=== PATIENT | male | born 1955 | race Caucasian/White ===

== ENCOUNTER 2016-09-27 09:23 | Day surgery (SDC) | payer BC ==
[~2016-09-27 09:23] MED LIST: Lactated Ringers 1,000 ML IV SCH
--- NOTE | 2016-09-27 10:09 | PCM.PREANE ---
Preanesthetic Assessment - Anesthesia/Transfusion/Family Hx Anesthesia History: Prior Anesthesia Without Reaction Family History of Anesthesia Reaction: No Transfusion History: No Prior Transfusion(s) Intubation History: Unknown - Review of Systems General: No Symptoms Pulmonary: No Symptoms Cardiovascular: No Symptoms Gastrointestinal: No symptoms Neurological: No Symptoms Other: Reports: None - Physical Assessment O2 Sat by Pulse Oximetry: 95 Respiratory Rate: 16 Vital Signs: Last Vital Signs Temp 36.7 C 09/27/16 09:54 Pulse 75 09/27/16 09:54 Resp 16 09/27/16 09:54 BP 171/93 H 09/27/16 09:54 Pulse Ox 95 09/27/16 09:54 Height: 1.78 m Weight: 115.666 kg ASA Class: 2 Mental Status: Alert & Oriented x3 Airway Class: Mallampati = 2 Dentition: Reports: Normal Dentition Thyro-Mental Finger Breadths: 3 Mouth Opening Finger Breadths: 3 ROM/Head Extension: Full Lungs: Clear to auscultation, Normal respiratory effort Cardiovascular: Regular Rate, Regular Rhythm - Allergies Allergies/Adverse Reactions: Allergies Allergy/AdvReac Type Severity Reaction Status Date / Time No Known Allergies Allergy Verified 05/08/16 14:47 - Blood Blood Available: No - Anesthesia Plan Pre-Op Medication Ordered: None - Acknowledgements Anesthesia Type Planned: MAC Pt an Appropriate Candidate for the Planned Anesthesia: Yes Alternatives and Risks of Anesthesia Discussed w Pt/Guardian: Yes Pt/Guardian Understands and Agrees with Anesthesia Plan: Yes PreAnesthesia Questionnaire Cardiovascular History: Reports: Hypertension Other Cardiovascular History: HTN in the past Gastrointestinal History: Reports: Other (See Below) Other Gastrointestinal History: dx with ruptured appendix at New Year, treated with guided drainage. Musculoskeletal History: Reports: Arthritis Endocrine/Metabolic History: Reports: Obesity/BMI 30+ Immunologic History: Reports: Other (See Below) (h/o shingles and post herpetic neuralgia) Oncologic (Cancer) History: Reports: Other (See Below) Other Oncologic History: Testicular Ca Left - Past Surgical History Head Surgeries/Procedures: Reports: None Cardiovascular Surgical History: Reports: None GI Surgical History: Reports: Colonoscopy Male Surgical History: Reports: Vasectomy, Other (See Below) Other Male Surgeries/Procedures: hx orchiectomy for testicular cancer Musculoskeletal Surgical History: Reports: Knee Replacement Other Musculoskeletal Surgeries/Procedures:: lt TKA - SUBSTANCE USE Smoking Status *Q: Current Some Day Smoker Tobacco Use Within Last Twelve Months: Cigarettes Second Hand Smoke Exposure: No Recreational Drug Use History: No - HOME MEDS Home Medications: Home Meds Arginine [l-Arginine] 500 mg PO DAILY 05/08/16 [History] Lutein/Minerals/Vit A,C & E [Ocuvite] 0 each PO DAILY 05/08/16 [History] Vitamin B Complex 1 each PO DAILY 05/08/16 [History] Calcium Carbonate [Calcium] 1 tab PO DAILY 09/06/16 [History] - CURRENT (IN HOUSE) MEDS Current Meds: Current Medications Lactated Ringer's (Ringers, Lactated) 1,000 mls @ 125 mls/hr IV ASDIRECTED [facility] Last Admin: 09/27/16 09:52 Dose: 125 mls/hr Discontinued Medications Lactated Ringer's (Ringers, Lactated) 1,000 mls @ 125 mls/hr IV ASDIRECTED [facility]
[2016-09-27] MEDS ORDERED: Propofol 200 MG/20 ML SDV ONE (10:53)
[2016-09-27] MEDS ORDERED: fentaNYL 100 MCG/2 ML SDV ONE (10:53)
[2016-09-27] MEDS ORDERED: Lidocaine 2% 5 ML SDV ONE (10:53)
[2016-09-27] MEDS ORDERED: Midazolam 1 MG/ML 2 ML SDV ONE (11:07)
[2016-09-27] MEDS ORDERED: Glycopyrrolate 0.2 MG/ML SDV ONE (11:23)
--- NOTE | 2016-09-27 11:37 | PCM.OPNOTE ---
- General Post-Op/Procedure Note Date of Surgery/Procedure: 09/27/16 (c) Operative Procedure(s): colonoscopy Findings: see dict [id number] Pre Op Diagnosis: perf appendicitis hx Post-Op Diagnosis: hemorrhoid Anesthesia Technique: Moderate sedation Primary Surgeon: Gianluca Gross Complications: None Condition: Good
--- NOTE | 2016-09-27 11:55 | PCM.POSTAN ---
POST ANESTHESIA ASSESSMENT - MENTAL STATUS Mental Status: alert, oriented - RESPIRATORY Respiratory Status: respiratory rate WNL, airway patent, O2 saturation stable - CARDIOVASCULAR CV Status: pulse rate WNL, blood pressure stable - GASTROINTESTINAL GI Status: no symptoms - POST OP HYDRATION Hydration Status: adequate & stable - OBSERVATIONS Free Text/Narrative:: no anesthesia problems
--- NOTE | 2016-09-27 12:05 | OR ---
SURGEON: Gianluca Gross MD DATE OF PROCEDURE: 09/27/2016 PREOPERATIVE DIAGNOSIS: Perforated appendicitis history. POSTOPERATIVE DIAGNOSIS: Hemorrhoids. COMPLICATIONS: None. PROCEDURE PERFORMED: Colonoscopy. FINDINGS: 1. The patient is easily sedated with COACH DRIVER and Diprivan. The patient is soundly snoring. 2. Bowel prep was average with moderate amount of liquid stool and requiring irrigation. 3. The patient's colon is rather straight forward. Cecum indicated by one-to- one indentation ileocecal fold, and appendiceal orifice. Light immittance is not observed. The mucosa examined upon scope pulling out and the patient does not have diverticulitis, diverticulosis, mass, polyp, growth, inflammation, stricture, ulceration, bleeding, AV malformation, none of those. The patient does have moderate internal hemorrhoids and mild external hemorrhoids. The patient would benefit from a repeat colonoscopy 10 years from today or if clinically indicated otherwise. DESCRIPTION OF PROCEDURE: The patient was taken to the endoscopy room. A time out was called, patient identified, and procedure identified. Diprivan was then administrated. Patient went from awake to sleep, hearing doctor talking or door closing is normal. Perineum inspection and digital examination were then performed. A well- lubricated colonoscope was gently inserted through the rectum, advanced past the rectosigmoid junction, the descending colon, splenic flexure, transverse colon, hepatic flexure, ascending colon, arrived to the cecum. Cecum was identified as dictated in the finding. Then the scope was carefully withdrawn while attention was paid to the mucosal surface for any abnormality. Air will be sucked out during the scope withdrawal. At the rectum, retroflexed to examine any rectal diseases, fistula or hemorrhoids. Patient tolerated procedure well. There were no intraoperative complications, and Dr. Gross was present throughout the whole procedure. FARNK / JOSE /[id number]
[2016-09-27 14:27] VITALS: BP 122/77
== END 2016-09-27 12:05 | disposition home or self-care (01) ==
LOC: MW.SDS 09:23
PROVIDERS: ATTEND Surgery
PROC: 0DJD8ZZ Inspection of Lower Intestinal Tract, Via Natural or Artificial Opening Endoscopic (ICD-10-PCS; principal; 2016-09-27)
DX: K64.4 Residual hemorrhoidal skin tags (principal); K64.8 Other hemorrhoids; N52.9 Male erectile dysfunction, unspecified; I10 Essential (primary) hypertension; F17.210 Nicotine dependence, cigarettes, uncomplicated; E66.9 Obesity, unspecified; Z86.19 Personal history of other infectious and parasitic diseases; Z87.01 Personal history of pneumonia (recurrent); Z85.47 Personal history of malignant neoplasm of testis; Z79.899 Other long term (current) drug therapy; Z96.652 Presence of left artificial knee joint; Z98.52 Vasectomy status; Z98.890 Other specified postprocedural states; Z68.37 Body mass index [BMI] 37.0-37.9, adult
CPT/HCPCS: 45378; J2250; J3010; J7120; J2704

== ENCOUNTER 2017-02-12 06:46 | Day surgery (SDC) | payer BC ==
[~2017-02-12 06:46] MED LIST changes: +cefOXitin 2 GM in Premix Bag 1 BAG IV ONE
--- NOTE | 2017-02-12 07:21 | PCM.PREANE ---
Preanesthetic Assessment - Anesthesia/Transfusion/Family Hx Anesthesia History: Prior Anesthesia Without Reaction Family History of Anesthesia Reaction: No Transfusion History: No Prior Transfusion(s) Intubation History: Unknown - Review of Systems General: No Symptoms Pulmonary: No Symptoms Cardiovascular: No Symptoms Gastrointestinal: No Symptoms Neurological: No Symptoms Other: Reports: None - Physical Assessment NPO Status Date: 02/11/17 O2 Sat by Pulse Oximetry: 96 Respiratory Rate: 16 Vital Signs: Last Vital Signs Temp 36.2 C 02/12/17 07:01 Pulse 77 02/12/17 07:01 Resp 16 02/12/17 07:01 BP 163/91 H 02/12/17 07:01 Pulse Ox 96 02/12/17 07:01 Height: 1.78 m Weight: 117.027 kg ASA Class: 2 Mental Status: Alert & Oriented x3 Dentition: Reports: Normal Dentition ROM/Head Extension: Full Lungs: Clear to Auscultation, Normal Respiratory Effort Cardiovascular: Regular Rate, Regular Rhythm - Allergies Allergies/Adverse Reactions: Allergies Allergy/AdvReac Type Severity Reaction Status Date / Time No Known Allergies Allergy Verified 02/12/17 07:06 - Anesthesia Plan Pre-Op Medication Ordered: None - Acknowledgements Anesthesia Type Planned: General Anesthesia Pt an Appropriate Candidate for the Planned Anesthesia: Yes Alternatives and Risks of Anesthesia Discussed w Pt/Guardian: Yes Pt/Guardian Understands and Agrees with Anesthesia Plan: Yes PreAnesthesia Questionnaire Cardiovascular History: Reports: Hypertension Other Cardiovascular History: HTN in the past Gastrointestinal History: Reports: Other (See Below) Other Gastrointestinal History: had a ruptured appendix in April, no surgery Genitourinary History: Reports: Other (See Below) Other Genitourinary History: hx of testicular cancer Musculoskeletal History: Reports: None Endocrine/Metabolic History: Reports: Obesity/BMI 30+ Immunologic History: Reports: Other (See Below) Oncologic (Cancer) History: Reports: Other (See Below) Other Oncologic History: testicular - Past Surgical History Head Surgeries/Procedures: Reports: None Cardiovascular Surgical History: Reports: None GI Surgical History: Reports: Colonoscopy Other Female Surgeries/Procedures: Orchiectomy Male Surgical History: Reports: Other (See Below) Other Male Surgeries/Procedures: hx orchiectomy for testicular cancer Musculoskeletal Surgical History: Reports: Knee Replacement Other Musculoskeletal Surgeries/Procedures:: left knee - SUBSTANCE USE Smoking Status *Q: Current Every Day Smoker Tobacco Use Within Last Twelve Months: Cigarettes Second Hand Smoke Exposure: No Recreational Drug Use History: No - HOME MEDS Home Medications: Home Meds Arginine [l-Arginine] 500 mg PO DAILY 05/08/16 [History] Lutein/Minerals/Vit A,C & E [Ocuvite] 1 tab PO DAILY 05/08/16 [History] Vitamin B Complex 1 each PO DAILY 05/08/16 [History] Calcium Carbonate [Calcium] 1 tab PO DAILY 09/06/16 [History] Aspirin [Dasha Chewable Aspirin] 81 mg PO DAILY 02/07/17 [History] - CURRENT (IN HOUSE) MEDS Current Meds: Current Medications Lactated Ringer's (Ringers, Lactated) 1,000 mls @ 125 mls/hr IV ASDIRECTED [facility] Last Admin: 02/12/17 06:54 Dose: 125 mls/hr Discontinued Medications Cefoxitin Sodium 2 gm/ Premix 50 mls @ 100 mls/hr IV ONETIME ONE Stop: 02/12/17 05:29
[2017-02-12] MEDS ORDERED: Bupivacaine 25%/EPINEPHrine/PF 30 ML ONE (07:23)
[2017-02-12] MEDS ORDERED: fentaNYL 100 MCG/2 ML SDV ONE ×2 (07:29→09:01)
[2017-02-12] MEDS ORDERED: Propofol 200 MG/20 ML SDV ONE ×2 (07:29→08:52)
[2017-02-12] MEDS ORDERED: Lidocaine 2% 5 ML SDV ONE (07:29)
[2017-02-12] MEDS ORDERED: Midazolam 1 MG/ML 2 ML SDV ONE (07:30)
[2017-02-12] MEDS ORDERED: Rocuronium 10 MG/ML 10 ML Syringe ONE (07:31)
[2017-02-12] MEDS ORDERED: Neostigmine Methylsulfate 1 MG/ML 5 ML Syringe ONE (07:31)
[2017-02-12] MEDS ORDERED: Ondansetron 4 MG/2 ML SDV ONE (07:31)
[2017-02-12] MEDS ORDERED: Ketorolac 30 MG/ML SDV ONE (07:31)
[2017-02-12] MEDS ORDERED: fentaNYL 100 MCG/2 ML SDV IVPUSH PRN (08:44)
[2017-02-12] MEDS ORDERED: Ondansetron 4 MG/2 ML SDV IVPUSH PRN (10:38)
[2017-02-12] MEDS: HYDROmorphone 2 MG/ML Syringe IVPUSH ONE ×2 (10:40→10:57)
--- NOTE | 2017-02-12 10:40 | PCM.OPNOTE ---
- General Post-Op/Procedure Note Date of Surgery/Procedure: 02/12/17 Operative Procedure(s): lap converted to open appendectomy Findings: appendix and ti, and cecum and abd wall all stucked together forming a meat ball ; [id number] Pre Op Diagnosis: interval appendectomy Post-Op Diagnosis: Same Anesthesia Technique: General ET Tube Primary Surgeon: Gianluca Gross Pathology: sent Complications: None Condition: Good
--- NOTE | 2017-02-12 10:49 | PCM.POSTAN ---
POST ANESTHESIA ASSESSMENT - MENTAL STATUS Mental Status: Alert, Oriented - RESPIRATORY Respiratory Status: Respiratory Rate WNL, Airway Patent, O2 Saturation Stable - CARDIOVASCULAR CV Status: Pulse Rate WNL, Blood Pressure Stable - GASTROINTESTINAL GI Status: No Symptoms - PAIN Pain Score: 3 - POST OP HYDRATION Hydration Status: Adequate & Stable
[2017-02-12] MEDS: Morphine 4 MG/ML Syringe IVPUSH PRN ×2 (11:58→18:04)
[2017-02-12] MEDS: Lactated Ringers 1,000 ML IV SCH ×2 (12:02→19:59)
[2017-02-12] MEDS: Acetaminophen/HYDROcodone 325-5 MG Tab PO PRN ×3 (13:42→23:00)
--- NOTE | 2017-02-12 14:53 | OR ---
SURGEON: Gianluca Gross MD DATE OF PROCEDURE: 02/12/2017 PREOPERATIVE DIAGNOSIS: Interval appendectomy. POSTOPERATIVE DIAGNOSIS: Interval appendectomy. PROCEDURE PERFORMED: Laparoscopic converted to open appendectomy. COMPLICATIONS: None. FINDINGS: The appendix is totally engulfed into a meat ball with the terminal ilium, cecum and abdominal wall, like a big meatball, technically challenged, converted to open. PROCEDURE IN DETAIL: The patient was taken to the operating room and placed in a supine position. Upon induction of general endotracheal anesthesia, the patient's abdomen was prepped and draped in a sterile fashion. Time-out was being called. The patient identified, procedure identified, antibiotic was given. Procedure was started with laparoscopic and later converted to open. Using Jacey technique, a 12-mm trocar was placed supraumbilically and another 5-mm trocar was placed in the right upper quadrant and another one placed in the lower midline suprapubic. Upon gaining entrance in the abdominal cavity, pneumoperitoneum was accomplished and noticed coming like a mountain of meatball attached to abdominal wall on the right lower quadrant and the appendix was nowhere to be found and followed the cecum of the colon and the terminal ilium lead to the meatball and believed the appendix was inside. Attempted dissection for about 15 minutes did not go anywhere, decided to open. Using a skin scalpel, the lower midline incision and supraumbilical incision were connected and peritoneal cavity was entered in the standard fashion and meatball was carefully dissected from the abdominal wall and appendix was identified, located and the base of the appendix was transected with laparoscopic stapler device. Good hemostasis was achieved by use of electrocautery and followed by extensive irrigation and abdominal wall incision was closed with double-stranded PDS and followed by skin staple and the patient was awakened, extubated and transferred to recovery room in hemodynamically stable condition. The patient tolerated the procedure well. There were no intraoperative complications and Dr. Gross was present throughout the procedure. As always, thank you for the kind referral. FRANK GARCIA /[id number] MTDHarrison
[2017-02-13] MEDS: Morphine 4 MG/ML Syringe IVPUSH PRN (03:03)
[2017-02-13] MEDS: Lactated Ringers 1,000 ML IV SCH ×2 (03:52→11:00)
[2017-02-13] MEDS: Acetaminophen/HYDROcodone 325-5 MG Tab PO PRN ×2 (07:21→11:05)
--- NOTE | 2017-02-13 09:21 | PCM48HPAN ---
Post Anesthesia Note - EVALUATION WITHIN 48HRS OF ANESTHETIC Vital Signs in Normal Range: Yes Patient Participated in Evaluation: Yes Respiratory Function Stable: Yes Airway Patent: Yes Cardiovascular Function Stable: Yes Hydration Status Stable: Yes Pain Control Satisfactory: Yes Nausea and Vomiting Control Satisfactory: Yes Mental Status Recovered: Yes
[2017-02-13 13:49] VITALS: BP 136/67
== END 2017-02-13 14:10 ==
LOC: MW.SDS 06:46 → UNDOADMOB 10:35 → MW.MS 10:35 → MW.SDS 02-13 14:10 → UNDODISOB 02-13 14:10
PROVIDERS: ATTEND Surgery
DX: K36 Other appendicitis (principal); Z53.31 Laparoscopic surgical procedure converted to open procedure; I10 Essential (primary) hypertension; Z79.82 Long term (current) use of aspirin; Z79.899 Other long term (current) drug therapy; Z98.52 Vasectomy status; Z96.652 Presence of left artificial knee joint; Z98.890 Other specified postprocedural states; F17.210 Nicotine dependence, cigarettes, uncomplicated
CPT/HCPCS: 44950; A9270; J1170; J1885; J2250; J2270; J2405; J3010; J7120; 00840; 88304; J2704